=== PATIENT | female | born 1950 | race Caucasian/White ===

== ENCOUNTER 2017-01-05 03:10 | Emergency (ER) | payer MEDICARE, OTHER ==
[~2017-01-05] VITALS: Ht 144.8 cm; Wt 49.0 kg
[~2017-01-05 03:10] MED LIST: ESTE400C PO; ESTE500T; NAPR220T95 PO; VITA400C70 PO
[2017-01-05 03:17] VITALS: BP 129/84; PULSE 84; RESP 18; TEMP 98.4; O2SAT 97
[2017-01-05 03:27] VITALS: RESP 18; O2SAT 97
[2017-01-05 03:34] VITALS: BP 132/90; PULSE 75; RESP 18; O2SAT 98
[2017-01-05] MEDS ORDERED: SODIUM CHLORIDE 0.9% FLUSH 10 ML FLUSH IV FLUSH PRN (04:00)
--- NOTE | 2017-01-05 04:15 | PD ---
HPI Chief Complaint: Abdominal Pain Time Seen by Provider: 03:53 Travel History International Travel<30 days: No Contact w/Intl Traveler<30days: No Traveled to known affect area: No History of Present Illness HPI 66-year-old female presents to the emergency department for complaint of one week of intermittent right lower quadrant abdominal pain. Patient has chronic constipation. Patient denies fever chills nausea vomiting or diarrhea. No recent antibiotic use. Patient denies personal history of gallbladder disease colitis diverticulitis and no recent dysuria frequency urgency hematuria or flank pain. Patient denies previous appendectomy. Patient has had right ovarian cyst excision via laparoscopy. Patient is unable to identify exacerbating or alleviating factors. No anorexia. No mass. Patient is not followed by a primary care provider. Patient takes no prescription medications. Patient has had previous orthopedic surgery. Patient rates current pain 5-7/10 in intensity. PFSH Past Medical History Narrative Medical Constipation, ovarian cysts; ovarian cyst excision, orthopedic surgery; no tobacco use; nursing notes reviewed Diminished Hearing: No Medical other: Yes (Hx constipation) Tetanus Vaccination: Never Vaccinated Influenza Vaccination: No Menopausal: Yes Ovarian Cysts: Yes Past Surgical History Eye Surgery: Yes (2016) Gynecologic Surgery: Yes (BREAST BIOPSY; laparoscopy right ovarian cyst) Other Surgery: Yes Social History Alcohol Use: Yes (RARELY) Tobacco Use: No Substance Use: No Allergies-Medications (Allergen,Severity, Reaction): Uncoded Allergies: UNKNOWN PAIN MEDICATION (Allergy, Unknown, Rash, 05/30/16) Reported Meds & Prescriptions Reported Meds & Active Scripts Active Review of Systems Except as stated in HPI: all other systems reviewed are Neg General / Constitutional: No: Fever, Chills HENT: No: Congestion Cardiovascular: No: Chest Pain or Discomfort, Palpitations Respiratory: No: Cough, Shortness of Breath Gastrointestinal: Positive: Abdominal Pain, No: Vomiting, Diarrhea, Loss of Appetite Genitourinary: No: Urgency, Frequency, Dysuria, Decreased Urinary Output Musculoskeletal: No: Myalgias, Arthralgias Skin: No Rash Neurologic: No: Weakness Psychiatric: No: Anxiety Endocrine: No: Heat Intolerance Hematologic/Lymphatic: No: Easy Bruising Physical Exam Narrative GENERAL: Well developed well nourished female in no apparent distress no respiratory distress SKIN: Warm and dry. HEAD: Normocephalic. EYES: No scleral icterus. No injection or drainage. NECK: Supple, trachea midline. No JVD or lymphadenopathy. CARDIOVASCULAR: Regular rate and rhythm without murmurs, gallops, or rubs. RESPIRATORY: Breath sounds equal bilaterally. No accessory muscle use. GASTROINTESTINAL: Abdomen soft, non-tender, nondistended. MUSCULOSKELETAL: No cyanosis, or edema. BACK: Nontender without obvious deformity. No CVA tenderness. Data Data Last Documented VS Vital Signs Date Time Temp Pulse Resp B/P Pulse Ox O2 Delivery O2 Flow Rate FiO2 01/05/17 04:16 76 18 109/76 97 Room Air 01/05/17 03:17 98.4 Orders Complete Blood Count With Diff (01/05/17 03:53) Comprehensive Metabolic Panel (01/05/17 03:53) Lipase (01/05/17 03:53) Urinalysis - C+S If Indicated (01/05/17 03:53) Ct Abd/Pel W Iv Contrast(Rout) (01/05/17 03:53) Iv Access Insert/Monitor (01/05/17 03:53) Ecg Monitoring (01/05/17 03:53) Oximetry (01/05/17 03:53) Sodium Chloride 0.9% Flush (Ns Flush) (01/05/17 04:00) Iohexol 350 Inj (Omnipaque 350 Inj) (01/05/17 05:25) Labs Laboratory Tests Test 01/05/17 01/05/17 04:04 04:10 Urine Collection Type VOIDED Urine Color STRAW Urine Turbidity CLEAR Urine pH 6.5 Urine Specific [place] 1.010 Urine Protein NEG mg/dL Urine Glucose (UA) NEG mg/dL Urine Ketones NEG mg/dL Urine Occult Blood SMALL Urine Nitrite NEG Urine Bilirubin NEG Urine Leukocyte Esterase NEG Urine RBC 0-3 /hpf Urine WBC 0-2 /hpf Urine Squamous Epithelial 0-2 /hpf Cells Microscopic Urinalysis Comment CULT NOT INDICATED White Blood Count 10.2 TH/MM3 Red Blood Count 4.45 MIL/MM3 Hemoglobin 13.8 GM/DL Hematocrit 40.6 % Mean Corpuscular Volume 91.3 FL Mean Corpuscular Hemoglobin 30.9 PG Mean Corpuscular Hemoglobin 33.9 % Concent Red Cell Distribution Width 12.3 % Platelet Count 272 TH/MM3 Mean Platelet Volume 7.8 FL Neutrophils (%) (Auto) 72.4 % Lymphocytes (%) (Auto) 16.3 % Monocytes (%) (Auto) 7.0 % Eosinophils (%) (Auto) 3.4 % Basophils (%) (Auto) 0.9 % Neutrophils # (Auto) 7.4 TH/MM3 Lymphocytes # (Auto) 1.7 TH/MM3 Monocytes # (Auto) 0.7 TH/MM3 Eosinophils # (Auto) 0.3 TH/MM3 Basophils # (Auto) 0.1 TH/MM3 CBC Comment DIFF FINAL Differential Comment Sodium Level 142 MEQ/L Potassium Level 3.6 MEQ/L Chloride Level 105 MEQ/L Carbon Dioxide Level 26.2 MEQ/L Anion Gap 11 MEQ/L Blood Urea Nitrogen 14 MG/DL Creatinine 0.55 MG/DL Estimat Glomerular Filtration 110 ML/MIN Rate Random Glucose 102 MG/DL Calcium Level 9.1 MG/DL Total Bilirubin 0.4 MG/DL Aspartate Amino Transf 15 U/L (AST/SGOT) Alanine Aminotransferase 18 U/L (ALT/SGPT) Alkaline Phosphatase 91 U/L Total Protein 7.5 GM/DL Albumin 3.7 GM/DL Lipase 217 U/L MDM Medical Decision Making Medical Screen Exam Complete: Yes Emergency Medical Condition: Yes Medical Record Reviewed: Yes Interpretation(s) ua: wnl CBC & BMP Diagram 01/05/17 04:10 Vital Signs Date Time Temp Pulse Resp B/P Pulse Ox O2 Delivery O2 Flow Rate FiO2 01/05/17 04:16 76 18 109/76 97 Room Air 01/05/17 03:38 18 01/05/17 03:34 75 18 132/90 98 Room Air 01/05/17 03:27 18 97 01/05/17 03:17 98.4 84 18 129/[address] abdomen and pelvis reading per radiologist Dr. Timothy Matias, conclusion: "No evidence of acute abdominal or pelvic process. No masses identified; constipation." Last Impressions Abdomen/Pelvis CT 01/05/17 0353 Signed Impressions: Service Date/Time: Thursday, January 05, 2017 05:06 - CONCLUSION: 1. No evidence of acute abdominal or pelvic process. No masses are identified. 2. Constipation Timothy Matias MD Differential Diagnosis Abdominal pain, diverticulitis, UTI, ovarian mass, renal colic, biliary colic, atypical appendicitis, constipation Narrative Course IV access obtained specimens collected and sent resulting CT imaging studies ordered Patient resting comfortably voicing no concerns or complaints at this time no medications administered Lab values found to be in normal range CBC complete metabolic panel and urinalysis; patient return from CT results are pending 6:[address] remains pending. Diagnosis Primary Impression: Abdominal pain Qualified Code: R10.30 - Lower abdominal pain Additional Impressions: Constipation Qualified Code: K59.00 - Constipation, unspecified constipation type Cyst of left kidney Referrals: Primary Care Physician call for appointment Patient Instructions: General Instructions Additional Instructions: Increase fluid hydration May use MiraLAX per package directions to assist with constipation and/or magnesium citrate per package directions Follow-up with primary care provider regarding abdominal pain constipation follow-up for renal cyst Return to the emergency department for any concerns or change in condition May take Tylenol per package directions needed for fever 100.4F or greater or for minor pain May use Phazyme/simethicone for abdominal cramps related to intestinal gas Med/Other Pt SpecificInfo: No Meds Exist/No RX given Disposition: 01 DISCHARGE HOME Condition: Stable Jenna Cassidy MD Jan 05, 2017 04:15
[2017-01-05 04:16] VITALS: BP 109/76; PULSE 76; RESP 18; O2SAT 97
[2017-01-05 04:24] LABS: BLOOD, URINE SMALL (NEG); GLUCOSE,URINE NEG (NEG); KETONE, URINE NEG (NEG); NITRITE,URINE NEG (NEG); PH, URINE 6.5 (5.0-8.5)
[2017-01-05 04:25] LABS: AUTOMATED NEUTROPHIL # 7.4 TH/MM3 (1.8-7.7); BASOPHIL # 0.1 TH/MM3 (0-0.2); BASOPHIL % 0.9 % (0.0-2.0); EOSINOPHIL # 0.3 TH/MM3 (0-0.4); EOSINOPHIL % 3.4 % (0.0-4.0); HEMATOCRIT 40.6 % (35.0-46.0); HEMO FLAGS DIFF FINAL; LYMPH % 16.3 % (9.0-44.0); LYMPHOCYTE # 1.7 TH/MM3 (1.0-4.8); MEAN CELL VOLUME 91.3 FL (80.0-100.0); MEAN CORPUSCULAR HEMOGLOBIN 30.9 PG (27.0-34.0); MEAN CORPUSCULAR HGB CONC 33.9 % (32.0-36.0); NEUT % 72.4 % (16.0-70.0); PLATELET COUNT 272 TH/MM3 (150-450); RED BLOOD COUNT 4.45 MIL/MM3 (4.00-5.30); RED CELL DISTRIBUTION WIDTH 12.3 % (11.6-17.2); WHITE BLOOD COUNT 10.2 TH/MM3 (4.0-11.0)
[2017-01-05 04:27] LABS: METHOD OF COLLECTION VOIDED; URINE COLOR STRAW (YELLW/STRAW)
[2017-01-05 04:29] LABS: COMMENT (UR) CULT NOT INDICATED; CULTURE IF INDICATED CULT NOT INDICATED; RBC, URINE 0-3 /hpf (0-3); SQUAMOUS EPITHELIAL CELL URINE 0-2 /hpf (0-5); WBC, URINE 0-2 /hpf (0-5)
[2017-01-05 04:32] LABS: CHLORIDE 105 MEQ/L (98-107); POTASSIUM 3.6 MEQ/L (3.5-5.1); SODIUM (NA) 142 MEQ/L (136-145)
[2017-01-05 04:36] LABS: ANION GAP 11 MEQ/L (5-15); BICARBONATE 26.2 MEQ/L (21.0-32.0); BLOOD UREA NITROGEN 14 MG/DL (7-18)
[2017-01-05 04:39] LABS: ALT (GPT) 18 U/L (10-53); AST (GOT) 15 U/L (15-37); GLOMERULAR FILTRATION RATE 110 ML/MIN (>89)
[2017-01-05 04:40] LABS: TOTAL BILIRUBIN ADULT 0.4 MG/DL (0.2-1.0)
[2017-01-05 04:42] LABS: ALKALINE PHOSPHATASE 91 U/L (45-117)
[2017-01-05] MEDS ORDERED: IOHEXOL 350 MG/ML 10 ML VIAL (for RAD DIAG) IV ONE (05:25)
[2017-01-05 05:30] VITALS: BP 102/62; PULSE 72; RESP 16; O2SAT 95
--- NOTE | 2017-01-05 06:24 | RADHPO ---
EXAM DATE/TIME: 01/05/2017 05:06 [facility] COMPARISON: No previous studies available for comparison. INDICATIONS : Right flank and lower qaudrant pain. IV CONTRAST: 75 cc Omnipaque 350 (iohexol) IV ORAL CONTRAST: No oral contrast ingested. RADIATION DOSE: 5.82 CTDIvol (mGy) MEDICAL HISTORY : None SURGICAL HISTORY : None. ENCOUNTER: Initial ACUITY: 1 week PAIN SCALE: 8/10 LOCATION: Right flank lower qaudrant TECHNIQUE: Volumetric scanning of the abdomen and pelvis was performed. Using automated exposure control and ad justment of the mA and/or kV according to patient size, radiation dose was kept as low as reasonably achievable to obtain optimal diagnostic quality images. FINDINGS: There is subsegmental atelectasis in the right base. The liver and spleen are free of focal defects. The gallbladder and pancreas demonstrate no abnormality. The adrenal glands are normal. The kidneys d emonstrate no evidence of solid renal mass or hydronephrosis. No free fluid or abdominal masses are i dentified. No para-aortic adenopathy is seen. There is a single simple cyst in the left kidney measu ring 2.5 CM in the midpole. There is a moderate amount of fecal material throughout the colon. The bl adder appears normal. No wall thickening or intraluminal masses are identified. CONCLUSION: 1. No evidence of acute abdominal or pelvic process. No masses are identified. 2. Constipation Timothy Matias MD on January 05, 2017 at 6:20 Board Certified Radiologist. This report was verified electronically.
[2017-01-05 06:47] VITALS: BP 102/62
== END 2017-01-05 06:59 | disposition home or self-care (01) ==
LOC: PHED 03:10
DX: R10.30 Lower abdominal pain, unspecified (principal); K59.09 Other constipation
CPT/HCPCS: 74177; 80053; 81001; 83690; 85025; 99284; Q9967